=== PATIENT | male | born 1950 | race Caucasian/White ===

== ENCOUNTER → 2017-11-13 | Outpatient (CLI) | payer MEDICARE ==
[2017-11-13 08:12] LABS: ABSOLUTE LYMPHOCYTES 0.8 thou/uL (0.8-5.3); ABSOLUTE MONOCYTES 0.8 thou/uL (0.0-1.2); ABSOLUTE NEUTROPHILS 3.1 thou/uL (1.6-8.1); BASOPHILS 0.9 %; EOSINOPHILS 0.7 %; HEMATOCRIT 38.5 % (42.0-52.0); HEMOGLOBIN 13.3 gm/dL (14.0-18.0); MCH 31.7 pg (26.0-34.0); MCHC 34.6 g/dL (28.0-37.0); MCV 91.6 fL (80.0-100.0); MPV 6.5 fl. (7.2-11.1); NUCLEATED RBCS 0 /100WBC; PLATELET COUNT* 197 thou/uL (150-400); POLYS 64.4 %; RDW-CV 12.5 % (10.5-14.5); WBC 4.8 thou/uL (4.0-11.0)
[2017-11-13 08:46] LABS: CHOLESTEROL 155 mg/dL (<200); HDL CHOLESTEROL 57 mg/dL (>40); LDL CHOLESTEROL 83 mg/dL (<100); TC:HDL 2.7 Ratio (Not establshd); TRIGLYCERIDE 79 mg/dL (<150); VLDL 16 mg/dL (<40)
[2017-11-13 08:49] LABS: SERUM ASSESSMENT Clear
[2017-11-13 20:35] LABS: ALBUMIN 3.6 g/dL (3.4-5.0); CALCIUM 8.7 mg/dL (8.5-10.1); CREATININE 0.6 mg/dL (0.6-1.3); POTASSIUM 4.1 mmol/L (3.5-5.1); TOTAL BILIRUBIN 0.4 mg/dL (<0.1-1.0); TOTAL PROTEIN 7.6 g/dL (6.4-8.2)
== END ==
LOC: M.LAB 07:54
PROVIDERS: Neuromusculoskeletal Medicine & OMM
DX: E78.2 Mixed hyperlipidemia (principal); Z79.899 Other long term (current) drug therapy

== ENCOUNTER → 2018-07-07 | Outpatient (CLI) | payer MEDICARE ==
[2018-07-07 08:17] LABS: ABSOLUTE BASOPHILS 0.1 thou/uL (0.0-0.2); ABSOLUTE EOSINOPHILS 0.1 thou/uL (0.0-0.7); ABSOLUTE LYMPHOCYTES 1.1 thou/uL (0.8-5.3); ABSOLUTE MONOCYTES 0.8 thou/uL (0.0-1.2); ABSOLUTE NEUTROPHILS 5.4 thou/uL (1.6-8.1); BASOPHILS 0.9 %; EOSINOPHILS 0.9 %; HEMATOCRIT 41.4 % (42.0-52.0); HEMOGLOBIN 14.2 gm/dL (14.0-18.0); LYMPHOCYTES 15.4 %; MCH 30.6 pg (26.0-34.0); MCHC 34.4 g/dL (28.0-37.0); MCV 89.1 fL (80.0-100.0); MONOCYTES 10.5 %; MPV 6.5 fl. (7.2-11.1); NUCLEATED RBCS 0 /100WBC; PLATELET COUNT* 259 thou/uL (150-400); POLYS 72.3 %; RBC 4.64 mil/uL (4.50-6.00); WBC 7.4 thou/uL (4.0-11.0)
[2018-07-07 09:08] LABS: ALBUMIN 3.8 g/dL (3.4-5.0); ALKALINE PHOSPHATASE 93 U/L (46-116); ANION GAP 7 mmol/L (7-16); BUN 6 mg/dL (7-18); CALCIUM 8.7 mg/dL (8.5-10.1); CHLORIDE 94 mmol/L (98-107); CHOLESTEROL 161 mg/dL (<200); CO2 29 mmol/L (21-32); CREATININE 0.7 mg/dL (0.6-1.3); GLUCOSE 114 mg/dL (70-99); HDL CHOLESTEROL 55 mg/dL (>40); LDL CHOLESTEROL 95 mg/dL (<100); POTASSIUM 4.5 mmol/L (3.5-5.1); SGOT 16 U/L (15-37); SGPT 17 U/L (30-65); SODIUM 130 mmol/L (136-145); TC:HDL 2.9 Ratio (Not establshd); TOTAL BILIRUBIN 0.5 mg/dL (<0.1-1.0); TOTAL PROTEIN 7.8 g/dL (6.4-8.2); TRIGLYCERIDE 55 mg/dL (<150); VLDL 11 mg/dL (<40)
[2018-07-07 09:14] LABS: SERUM ASSESSMENT Clear
== END ==
LOC: M.LAB 07:57
PROVIDERS: Neuromusculoskeletal Medicine & OMM
DX: E78.2 Mixed hyperlipidemia (principal); Z79.899 Other long term (current) drug therapy